=== PATIENT | male | born 1995 | race Caucasian/White ===

== ENCOUNTER 2021-08-07 14:02 | Emergency (ER) | payer OTHER ==
[~2021-08-07] VITALS: Ht 175.3 cm; Wt 81.5 kg
[2021-08-07] MEDS ORDERED: FLON1SPR NARES (14:11)
[2021-08-07] MEDS ORDERED: FLUT44IN INH (14:11)
[2021-08-07] MEDS ORDERED: SING10TA32 PO (14:11)
[2021-08-07] MEDS ORDERED: VENTAER INH (14:11)
[2021-08-07] MEDS ORDERED: MORPHINE 2 MG/ML 1ML VIAL (J2270) IV ONE (16:30)
[2021-08-07] MEDS ORDERED: BOOSTRIX/ADACEL VACCINE (DIPHTH/PERTUSS/ACELL/TETANUS) 0.5ML SYR IM ONE (16:30)
[2021-08-07] MEDS ORDERED: LIDOCAINE 1% MDV 20ML VIAL SC ONE (16:30)
[2021-08-07] MEDS ORDERED: ceFAZolin SOD 1 GM in D5W MINI-BAG PLUS 50 ML IV ONE (16:30)
[2021-08-07] MEDS ORDERED: ONDANSETRON 4MG/2ML VIAL IV ONE (16:30)
[2021-08-07] MEDS ORDERED: CEPH500T PO (18:59)
[2021-08-07] MEDS ORDERED: NORCO, ANEXSIA 5/325MG TABLET (HYDROcodone/ACETAMINOPHEN) PO ONE (19:05)
[2021-08-07 19:55] VITALS: BP 127/66
== END 2021-08-07 19:55 | disposition home or self-care (01) ==
LOC: M ED 14:02
DX: S61.112A Laceration without foreign body of left thumb with damage to nail, initial encounter (principal); W23.1XXA Caught, crushed, jammed, or pinched between stationary objects, initial encounter; Y92.9 Unspecified place or not applicable; Y93.9 Activity, unspecified; Y99.0 Civilian activity done for income or pay
CPT/HCPCS: 73140; 90471; 90715; 96374; 99284; J0690